=== PATIENT | female | born 1960 | race Caucasian/White ===

== ENCOUNTER 2016-06-19 00:50 | Inpatient (IN) | payer OTHER ==
[2016-06-19] VITALS (47 sets, daily range): BP systolic 95–157; BP diastolic 26–106
[~2016-06-19] VITALS: Ht 157.5 cm; Wt 63.2 kg
[~2016-06-19 00:50] MED LIST: ASPI-498 PO; BECL0.07 IN; CHOL20007 PO; DOXY-216 PO; METH4PAK PO; MONT5CHW17 PO; OMEG300C7 PO
[2016-06-19] MEDS ORDERED: ALBU1AER4 IN (01:01)
[2016-06-19] MEDS ORDERED: AMIODARONE HCL 150 MG in D5W 5% 100 ML IV ONE (01:15)
[2016-06-19] MEDS ORDERED: SODIUM CHLORIDE 0.9% 1,000 ML IV ONE ×2 (01:15→09:45)
[2016-06-19] MEDS ORDERED: NOREPINEPHRINE BITARTRATE 250 ML IV ONE (01:20)
[2016-06-19] MEDS ORDERED: ALBUTEROL SULF 2.5 MG/0.5ML(0.5%) NEB SOLN ONE ×3 (01:25→09:05)
[2016-06-19] MEDS ORDERED: IPRATROPIUM BROM 0.5 MG/2.5ML INH SOL ONE (01:25)
[2016-06-19 01:26] LABS: Platelet Count (auto) 181 10^3/uL (140-450)
[2016-06-19 01:30] LABS: Basophils # (auto) 0.1 uL; Basophils % (auto) 0.9 % (0.0-2.0); Eosinophils # (auto) 0.5 uL; Eosinophils % (auto) 4.9 % (0.0-7.0); Hematocrit 41.5 % (36.0-46.0); Hemoglobin 13.4 g/dL (12.2-16.2); Lymphocytes # (auto) 4.2 uL; Lymphocytes % (auto) 41.9 % (10.0-50.0); Mean Corpuscular Hemoglobin 30.5 pg (28.0-32.0); Mean Corpuscular Hgb Conc. 32.2 g/dL (32.0-36.0); Mean Corpuscular Volume 94.5 fL (80.0-100.0); Mean Platelet Volume 9.9 fL (7.4-10.4); Monocytes # (auto) 0.3 uL; Monocytes % (auto) 3.2 % (0.0-12.0); Neutrophils # (auto) 4.9 uL; Neutrophils % (auto) 49.1 % (37.0-80.0); Red Cell Distribution Width 12.1 % (11.6-16.0); SUSPECT VIEW TRANSMISSION
[2016-06-19 01:37] LABS: Albumin 2.6 g/dL (3.4-5.0); BUN/Creatinine Ratio 10.9; Calcium 11.1 mg/dL (8.5-10.1)
[2016-06-19] MEDS ORDERED: methylPREDNISolone SOD SUCC 125 MG/2 ML VL ONE (01:40)
[2016-06-19] MEDS ORDERED: methylPREDNISolone SOD SUCC 125 MG/2 ML VL IV ONE ×2 (01:45→09:45)
[2016-06-19 01:53] LABS: Bilirubin, Total 0.2 mg/dL (0.2-1.0); Total Protein 5.7 g/dL (6.4-8.2)
[2016-06-19] MEDS ORDERED: AMIODARONE HCL (50 MG/ ML) 3 ML VIAL IV ONE (02:01)
[2016-06-19] MEDS ORDERED: SODIUM BICARBONATE 8.4 % INJ 50ML VIAL IV ONE ×3 (02:15→05:15)
[2016-06-19] MEDS ORDERED: ALBUTEROL SULF 2.5 MG/0.5ML(0.5%) NEB SOLN NEB ONE ×2 (02:15→05:00)
[2016-06-19] MEDS: MAGNESIUM SULFATE 1GM/100ML 100 ML IV SCH ×2 (02:26→03:51)
[2016-06-19] MEDS ORDERED: MIDAZOLAM DRIP 100 mg/100mL NS 100 ML IV ONE (02:33)
[2016-06-19] MEDS: MIDAZOLAM DRIP 100 mg/100mL NS 100 ML IV SCH ×3 (02:49→18:52)
[2016-06-19] MEDS: NOREPINEPHRINE BITARTRATE 250 ML IV SCH ×2 (03:52→17:03)
[2016-06-19] MEDS ORDERED: ATROPINE SULF 0.5 MG/5ML SYR ONE (04:47)
[2016-06-19 04:55] LABS: Urine Bilirubin Negative (Negative); Urine Ca Oxalate Crystal FEW (None Seen); Urine Color Yellow (Yellow); Urine Ketone Negative (Negative); Urine Mucus FEW (None Seen); Urine Nitrite Negative (Negative); Urine RBC 6 /hpf (0 - 4); Urine Urobilinogen Normal (Negative)
[2016-06-19 04:57] LABS: Urine Blood 2+ /uL (Negative); Urine Glucose 3+ mg/dL (Normal)
[2016-06-19] MEDS ORDERED: IPRATROPIUM BROM 0.5 MG/2.5ML INH SOL NEB ONE (05:00)
[2016-06-19] MEDS ORDERED: DEXAMETHASONE SOD PHOS 10MG/1ML VIAL INJ IV ONE (05:00)
[2016-06-19] MEDS ORDERED: KETAMINE HCL 50 MG/ML 10ML VIAL IV ONE (05:15)
[2016-06-19] MEDS ORDERED: TERBUTALINE SULFATE 1 MG/ML 1ML VIAL SC ONE (05:15)
[2016-06-19] MEDS ORDERED: ATROPINE SULFATE 0.4 MG/1 ML VIAL IV ONE (05:15)
[2016-06-19] MEDS ORDERED: ROCURONIUM 10MG/ML 10ML VIAL IV ONE (06:15)
[2016-06-19] MEDS ORDERED: SODIUM BICARBONATE 50ML VIAL 150 ML in D5W 5% 1,000 ML IV ONE (06:15)
[2016-06-19] MEDS ORDERED: SODIUM CHLORIDE 0.9% 1,000 ML IV SCH (07:12)
[2016-06-19] MEDS ORDERED: DEXTROSE (50%) 50ML SYRG IV PRN (07:15)
[2016-06-19] MEDS ORDERED: NITROGLYCERIN 0.4 MG SL TAB SL PRN (07:15)
[2016-06-19] MEDS ORDERED: MORPHINE SULF INJ 2 MG/ML SYRINGE 1ML IV PRN ×2 (07:15)
[2016-06-19] MEDS ORDERED: OSELTAMIVIR 75 MG CAP PO ONE (07:15)
[2016-06-19] MEDS ORDERED: LORazepam 2MG/ML-1ML VIAL IV PRN (07:15)
[2016-06-19] MEDS ORDERED: PROMETHAZINE HCL 25 MG/ML 1ML IV PRN (07:15)
[2016-06-19] MEDS ORDERED: LEVOFLOXACIN 500MG 100 ML IV ONE (07:45)
[2016-06-19] MEDS: ACCU-CHEK COMFORT CURVE STRIP VI SCH ×4 (08:00→20:00)
[2016-06-19] MEDS ORDERED: PROPOFOL 100 ML IV ONE (08:35)
[2016-06-19] MEDS: PROPOFOL 100 ML IV SCH (08:51)
[2016-06-19 09:27] LABS: Partial Thromboplastin Time 31.3 sec (22.64-33.71)
[2016-06-19] MEDS ORDERED: LEVOFLOXACIN 500MG 100 ML IV SCH (10:00)
[2016-06-19] MEDS: ASPirin 81 mg TAB PO SCH (10:00)
[2016-06-19] MEDS ORDERED: ENOXAPARIN SOD 40 MG/0.4 ML SYRINGE SC SCH (10:00)
[2016-06-19] MEDS ORDERED: OSELTAMIVIR 75 MG CAP PO SCH (10:00)
[2016-06-19 10:01] LABS: INR 1.54 (0.9-1.15); Prothrombin Time 15.9 sec (9.37-12.3)
[2016-06-19] MEDS: ENOXAPARIN SOD 60 MG/0.6 ML SYRINGE SC SCH ×2 (10:28→22:28)
[2016-06-19] MEDS: PANTOPRAZOLE SODIUM 40 MG/10 ML VIAL IV SCH (10:28)
[2016-06-19] MEDS: InsuLIN REG 1unit/0.01ml Soln (100units/ml) SC SCH ×4 (10:35→20:00)
[2016-06-19 11:34] LABS: Lactic Acid 3.2 mmol/L (0.4-2.0)
[2016-06-19] MEDS: fentaNYL Drip 2500mCg/250mlNS 250 ML IV SCH (11:40)
[2016-06-19 12:00] LABS: REFLEX LACTIC ACID YES OR NO YES
[2016-06-19] MEDS: IPRATROPIUM BROM 0.5 MG/2.5ML INH SOL NEB SCH ×2 (12:20→19:29)
[2016-06-19] MEDS: ALBUTEROL SULF 2.5 MG/0.5ML(0.5%) NEB SOLN NEB SCH ×2 (12:20→19:29)
[2016-06-19] MEDS: methylPREDNISolone SOD SUCC 40 MG/ML VL IV SCH ×2 (12:46→17:41)
[2016-06-19 13:42] LABS: Lactic Acid 6.1 mmol/L (0.4-2.0)
[2016-06-19 14:16] LABS: REFLEX LACTIC ACID YES OR NO YES
[2016-06-19] MEDS: ALBUTEROL SULF 2.5 MG/0.5ML(0.5%) NEB SOLN NEB PRN ×2 (15:15→22:12)
[2016-06-19 19:02] LABS: Lactic Acid 7.8 mmol/L (0.4-2.0)
[2016-06-19] MEDS: SODIUM CHLORIDE 0.9% 1,000 ML IV SCH (19:23)
[2016-06-19 19:34] LABS: REFLEX LACTIC ACID YES OR NO YES
[2016-06-19] MEDS ORDERED: ATORVASTATIN 20 MG TAB PO SCH (22:00)
[2016-06-19] MEDS: OSELTAMIVIR 75 MG CAP PO SCH (22:00)
[2016-06-19] MEDS: ATORVASTATIN 20 MG TAB PO SCH (22:26)
[2016-06-20] VITALS (103 sets, daily range): BP systolic 97–186; BP diastolic 45–105
[2016-06-20] MEDS: ALBUTEROL SULF 2.5 MG/0.5ML(0.5%) NEB SOLN NEB SCH ×3 (00:21→18:40)
[2016-06-20] MEDS: IPRATROPIUM BROM 0.5 MG/2.5ML INH SOL NEB SCH ×4 (00:21→18:40)
[2016-06-20] MEDS: SODIUM CHLORIDE 0.9% 1,000 ML IV SCH (03:05)
[2016-06-20 03:57] LABS: Hematocrit 39.5 % (36.0-46.0); Hemoglobin 13.3 g/dL (12.2-16.2); Mean Corpuscular Hemoglobin 30.6 pg (28.0-32.0); Mean Corpuscular Hgb Conc. 33.6 g/dL (32.0-36.0); Mean Corpuscular Volume 91.1 fL (80.0-100.0); Mean Platelet Volume 9.2 fL (7.4-10.4); Platelet Count (auto) 222 10^3/uL (140-450); Red Cell Distribution Width 12.6 % (11.6-16.0); SUSPECT VIEW TRANSMISSION; White Blood Cell 23.9 10^3/uL (4.4-10.8)
[2016-06-20] MEDS: InsuLIN REG 1unit/0.01ml Soln (100units/ml) SC SCH ×3 (04:00→08:37)
[2016-06-20] MEDS: ACCU-CHEK COMFORT CURVE STRIP VI SCH ×3 (04:00→08:13)
[2016-06-20 04:08] LABS: Metamyelocytes % 0; Myelocytes % 0; Promyelocytes % 0; Reactive Lymphocytes 0
[2016-06-20] MEDS: ALBUTEROL SULF 2.5 MG/0.5ML(0.5%) NEB SOLN NEB PRN (04:27)
[2016-06-20 05:17] LABS: Albumin 2.5 g/dL (3.4-5.0); Calcium 7.4 mg/dL (8.5-10.1)
[2016-06-20 05:20] LABS: Potassium 2.8 mmol/L (3.5-5.1)
[2016-06-20 05:21] LABS: BUN/Creatinine Ratio 15.9
[2016-06-20 05:22] LABS: Bilirubin, Total 0.3 mg/dL (0.2-1.0); Total Protein 5.5 g/dL (6.4-8.2)
[2016-06-20 05:58] LABS: Anisocytosis Slight; Platelet Estimate Adequate
[2016-06-20] MEDS ORDERED: POTASSIUM CHL 20MEQ/100ML 300 ML IV ONE (06:15)
[2016-06-20] MEDS: POTASSIUM CHL 20MEQ/100ML 100 ML IV SCH ×3 (06:24→10:15)
[2016-06-20] MEDS: methylPREDNISolone SOD SUCC 40 MG/ML VL IV SCH ×4 (06:24→18:30)
[2016-06-20] MEDS: PROPOFOL 100 ML IV SCH (09:22)
[2016-06-20] MEDS: ASPirin 81 mg TAB PO SCH (10:02)
[2016-06-20] MEDS: ENOXAPARIN SOD 60 MG/0.6 ML SYRINGE SC SCH (10:02)
[2016-06-20] MEDS: PANTOPRAZOLE SODIUM 40 MG/10 ML VIAL IV SCH (10:02)
[2016-06-20] MEDS ORDERED: ALBUTEROL SULF 2.5 MG/0.5ML(0.5%) NEB SOLN NEB PRN (10:30)
[2016-06-20] MEDS ORDERED: cefTRIAXone 1GM/50ML D5W 50 ML IV ONE (10:30)
[2016-06-20] MEDS ORDERED: BUDESONIDE (INHALATION) 0.5 MG/2 ML NEB NEB ONE (10:45)
[2016-06-20] MEDS ORDERED: Novasource Renal 1 Liter GT SCH (10:45)
[2016-06-20] MEDS ORDERED: METOPROLOL TARTRATE 25 MG TAB PO ONE (10:45)
[2016-06-20] MEDS ORDERED: MONTELUKAST SODIUM 10 MG TAB GT ONE (10:45)
[2016-06-20] MEDS: fentaNYL Drip 2500mCg/250mlNS 250 ML IV SCH (10:58)
[2016-06-20 11:27] LABS: Magnesium 2.5 mg/dL (1.6-2.6); Phosphorus 5.1 mg/dL (2.5-4.90)
[2016-06-20] MEDS ORDERED: hydrALAZINE HCL 20 MG/ML VL IV PRN (11:30)
[2016-06-20] MEDS: OSELTAMIVIR 75 MG CAP PO SCH ×2 (11:37→22:00)
[2016-06-20] MEDS: D5W/SOD CHL 0.45% 1,000 ML IV SCH ×2 (11:45→19:30)
[2016-06-20] MEDS ORDERED: ALBUMIN 25% 100 ML IV ONE (11:45)
[2016-06-20] MEDS ORDERED: BUMETANIDE (0.25 MG/ML) INJ 10ML IV ONE (11:45)
[2016-06-20] MEDS ORDERED: HEPARIN DRIP/D5W 100UNITS/ML 250 ML IV SCH (12:23)
[2016-06-20] MEDS ORDERED: HEPARIN SODIUM (PORCINE) 5000 UNITS/ML 1ML VIAL IV ONE (12:30)
[2016-06-20] MEDS ORDERED: BUMETANIDE INJECTION 10 ML ONE (13:45)
[2016-06-20] MEDS ORDERED: methylPREDNISolone SOD SUCC 125 MG/2 ML VL IV SCH (14:00)
[2016-06-20] MEDS: BUDESONIDE (INHALATION) 0.5 MG/2 ML NEB NEB SCH (18:40)
[2016-06-20 19:18] LABS: Hematocrit 33.4 % (36.0-46.0); Hemoglobin 11.4 g/dL (12.2-16.2); Mean Corpuscular Hgb Conc. 34.1 g/dL (32.0-36.0); Mean Corpuscular Volume 91.1 fL (80.0-100.0); Mean Platelet Volume 9.5 fL (7.4-10.4); Platelet Count (auto) 159 10^3/uL (140-450); Red Cell Distribution Width 13.1 % (11.6-16.0); SUSPECT VIEW TRANSMISSION; White Blood Cell 23.4 10^3/uL (4.4-10.8)
[2016-06-20 19:23] LABS: Metamyelocytes % 0; Myelocytes % 0; Partial Thromboplastin Time 68.5 sec (22.64-33.71); Promyelocytes % 0; Reactive Lymphocytes 0
[2016-06-20 19:38] LABS: INR 1.29 (0.9-1.15); Prothrombin Time 13.3 sec (9.37-12.3)
[2016-06-20 20:31] LABS: Platelet Estimate Adequate; RBC Morphology Normal
[2016-06-20] MEDS: METOPROLOL TARTRATE 25 MG TAB PO SCH (22:00)
[2016-06-20] MEDS: ATORVASTATIN 20 MG TAB PO SCH (22:04)
[2016-06-21] VITALS (99 sets, daily range): BP systolic 79–197; BP diastolic 47–108
[2016-06-21] MEDS: ALBUTEROL SULF 2.5 MG/0.5ML(0.5%) NEB SOLN NEB SCH ×4 (00:16→19:10)
[2016-06-21] MEDS: IPRATROPIUM BROM 0.5 MG/2.5ML INH SOL NEB SCH ×4 (00:16→19:10)
[2016-06-21] MEDS: methylPREDNISolone SOD SUCC 40 MG/ML VL IV SCH ×4 (00:32→18:00)
[2016-06-21 02:32] LABS: Partial Thromboplastin Time 35.1 sec (22.64-33.71)
[2016-06-21 02:35] LABS: INR 1.2 (0.9-1.15); Prothrombin Time 12.4 sec (9.37-12.3)
[2016-06-21] MEDS: D5W/SOD CHL 0.45% 1,000 ML IV SCH ×3 (03:30→22:36)
[2016-06-21 04:08] LABS: Basophils # (auto) 0 uL; Eosinophils # (auto) 0 uL; Lymphocytes # (auto) 0.9 uL; Lymphocytes % (auto) 4.1 % (10.0-50.0); Mean Corpuscular Hgb Conc. 33.3 g/dL (32.0-36.0); Mean Corpuscular Volume 93.1 fL (80.0-100.0); Monocytes # (auto) 0.8 uL; Monocytes % (auto) 3.6 % (0.0-12.0); Neutrophils # (auto) 19.6 uL; Neutrophils % (auto) 92.3 % (37.0-80.0); Platelet Count (auto) 135 10^3/uL (140-450); Red Cell Distribution Width 13.4 % (11.6-16.0); SUSPECT VIEW TRANSMISSION; White Blood Cell 21.2 10^3/uL (4.4-10.8)
[2016-06-21 04:09] LABS: Albumin 2.7 g/dL (3.4-5.0); BUN/Creatinine Ratio 17.1; Bilirubin, Total 0.2 mg/dL (0.2-1.0); Calcium 7.1 mg/dL (8.5-10.1); Potassium 4.2 mmol/L (3.5-5.1); Total Protein 5.4 g/dL (6.4-8.2)
[2016-06-21] MEDS: BUDESONIDE (INHALATION) 0.5 MG/2 ML NEB NEB SCH ×2 (06:31→19:10)
[2016-06-21] MEDS: PROPOFOL 100 ML IV SCH (08:45)
[2016-06-21] MEDS: cefTRIAXone 1GM/50ML D5W 50 ML IV SCH (09:35)
[2016-06-21] MEDS: ASPirin 81 mg TAB PO SCH (10:00)
[2016-06-21 10:11] LABS: INR 1.17 (0.9-1.15)
[2016-06-21 10:14] LABS: Partial Thromboplastin Time 74.1 sec (22.64-33.71)
[2016-06-21] MEDS: PANTOPRAZOLE SODIUM 40 MG/10 ML VIAL IV SCH (10:35)
[2016-06-21] MEDS: METOPROLOL TARTRATE 25 MG TAB PO SCH ×2 (10:35→22:36)
[2016-06-21] MEDS: MONTELUKAST SODIUM 10 MG TAB GT SCH (10:36)
[2016-06-21] MEDS ORDERED: ALBUMIN 25% 100 ML IV ONE (10:45)
[2016-06-21] MEDS ORDERED: BUMETANIDE (0.25 MG/ML) INJ 10ML IV ONE (10:45)
[2016-06-21] MEDS ORDERED: HEPARIN DRIP/D5W 100UNITS/ML 250 ML IV SCH ×2 (10:45→16:30)
[2016-06-21] MEDS: fentaNYL Drip 2500mCg/250mlNS 250 ML IV SCH (10:58)
[2016-06-21 16:06] LABS: INR 1.15 (0.9-1.15); Prothrombin Time 11.8 sec (9.37-12.3)
[2016-06-21 16:19] LABS: Partial Thromboplastin Time 80.9 sec (22.64-33.71)
[2016-06-21] MEDS ORDERED: LABETALOL HCL 5 MG/ML 4ML SYRINGE IV ONE (16:46)
[2016-06-21] MEDS: LABETALOL HCL 5 MG/ML 4ML SYRINGE IV PRN (16:57)
[2016-06-21 19:29] LABS: Hematocrit 27.8 % (36.0-46.0); Hemoglobin 9.4 g/dL (12.2-16.2); Mean Corpuscular Hemoglobin 30.9 pg (28.0-32.0); Mean Corpuscular Hgb Conc. 33.7 g/dL (32.0-36.0); Mean Corpuscular Volume 91.5 fL (80.0-100.0); Mean Platelet Volume 10.1 fL (7.4-10.4); Platelet Count (auto) 217 10^3/uL (140-450); Red Cell Distribution Width 13.4 % (11.6-16.0); SUSPECT VIEW TRANSMISSION; White Blood Cell 28.5 10^3/uL (4.4-10.8)
[2016-06-21 19:36] LABS: Metamyelocytes % 0; Myelocytes % 0; Promyelocytes % 0; Reactive Lymphocytes 0
[2016-06-21 19:37] LABS: Partial Thromboplastin Time 47.8 sec (22.64-33.71); Prothrombin Time 11.9 sec (9.37-12.3)
[2016-06-21 19:51] LABS: INR 1.16 (0.9-1.15)
[2016-06-21 20:40] LABS: Anisocytosis Moderate; Platelet Estimate Adequate
[2016-06-21 20:41] LABS: Large Platelets FEW
[2016-06-21] MEDS: ATORVASTATIN 20 MG TAB PO SCH (22:35)
[2016-06-22] VITALS (36 sets, daily range): BP systolic 148–184; BP diastolic 83–108
[2016-06-22] MEDS: ALBUTEROL SULF 2.5 MG/0.5ML(0.5%) NEB SOLN NEB SCH ×3 (00:26→12:48)
[2016-06-22] MEDS: IPRATROPIUM BROM 0.5 MG/2.5ML INH SOL NEB SCH ×3 (00:26→12:48)
[2016-06-22] MEDS: LABETALOL HCL 5 MG/ML 4ML SYRINGE IV PRN (02:45)
[2016-06-22 03:55] LABS: Hemoglobin 9.2 g/dL (12.2-16.2); Mean Corpuscular Hemoglobin 31.3 pg (28.0-32.0); Mean Corpuscular Volume 92.1 fL (80.0-100.0); Mean Platelet Volume 10.4 fL (7.4-10.4); Platelet Count (auto) 174 10^3/uL (140-450); Red Cell Distribution Width 13.2 % (11.6-16.0); SUSPECT VIEW TRANSMISSION; White Blood Cell 21.4 10^3/uL (4.4-10.8)
[2016-06-22 04:14] LABS: Calcium 6.9 mg/dL (8.5-10.1); Potassium 5.1 mmol/L (3.5-5.1)
[2016-06-22 04:24] LABS: BUN/Creatinine Ratio 20.1; Bilirubin, Total 0.7 mg/dL (0.2-1.0); Total Protein 5.6 g/dL (6.4-8.2)
[2016-06-22 05:42] LABS: Metamyelocytes % 0; Myelocytes % 0; Promyelocytes % 0; Reactive Lymphocytes 0
[2016-06-22] MEDS: BUDESONIDE (INHALATION) 0.5 MG/2 ML NEB NEB SCH (06:00)
[2016-06-22] MEDS: methylPREDNISolone SOD SUCC 40 MG/ML VL IV SCH ×2 (06:07)
[2016-06-22] MEDS: D5W/SOD CHL 0.45% 1,000 ML IV SCH ×2 (06:23→11:30)
[2016-06-22 06:30] LABS: Platelet Estimate Adequate
[2016-06-22] MEDS: PROPOFOL 100 ML IV SCH (08:45)
[2016-06-22] MEDS: cefTRIAXone 1GM/50ML D5W 50 ML IV SCH (09:00)
[2016-06-22] MEDS: PANTOPRAZOLE SODIUM 40 MG/10 ML VIAL IV SCH (09:58)
[2016-06-22] MEDS: MONTELUKAST SODIUM 10 MG TAB GT SCH (09:58)
[2016-06-22] MEDS: ASPirin 81 mg TAB PO SCH (09:59)
[2016-06-22] MEDS: METOPROLOL TARTRATE 25 MG TAB PO SCH (09:59)
[2016-06-22] MEDS: fentaNYL Drip 2500mCg/250mlNS 250 ML IV SCH (10:58)
[2016-06-22] MEDS ORDERED: LORazepam 2MG/ML-1ML VIAL IV ONE (12:45)
[2016-06-22] MEDS ORDERED: LORazepam 2MG/ML-1ML VIAL IV PRN (12:45)
[2016-06-22] MEDS ORDERED: MORPHINE SULF INJ 2 MG/ML SYRINGE 1ML IV ONE (12:45)
[2016-06-22] MEDS ORDERED: methylPREDNISolone SOD SUCC 40 MG/ML VL IV SCH (18:00)
[2016-06-22] MEDS: MORPHINE SULF INJ 2 MG/ML SYRINGE 1ML IV PRN (18:29)
[2016-06-23 05:32] VITALS: BP 153/85
[2016-06-23 05:41] LABS: Hematocrit 27.6 % (36.0-46.0); Hemoglobin 9.3 g/dL (12.2-16.2); Mean Corpuscular Hemoglobin 30.8 pg (28.0-32.0); Mean Corpuscular Hgb Conc. 33.7 g/dL (32.0-36.0); Mean Corpuscular Volume 91.4 fL (80.0-100.0); Mean Platelet Volume 10.5 fL (7.4-10.4); Platelet Count (auto) 207 10^3/uL (140-450); Red Cell Distribution Width 13.8 % (11.6-16.0); SUSPECT VIEW TRANSMISSION
[2016-06-23 05:44] LABS: Metamyelocytes % 0; Myelocytes % 0; Promyelocytes % 0; Reactive Lymphocytes 0; White Blood Cell 31.3 10^3/uL (4.4-10.8)
[2016-06-23 06:14] LABS: BUN/Creatinine Ratio 22.8; Calcium 7.5 mg/dL (8.5-10.1); Potassium 5.1 mmol/L (3.5-5.1)
[2016-06-23 06:55] LABS: Platelet Estimate Adequate; RBC Morphology Normal
[2016-06-23 09:00] VITALS: BP 160/86
[2016-06-23 12:42] VITALS: BP 152/89
[2016-06-23] MEDS: MORPHINE SULF INJ 2 MG/ML SYRINGE 1ML IV PRN ×3 (14:16→20:53)
[2016-06-23 17:00] VITALS: BP 141/78
[2016-06-23 22:00] VITALS: BP 132/72
== END 2016-06-24 01:03 | disposition expired | DRG 208 ==
LOC: ER 00:52 → TELE 00:53 → ICU WEST 15:24 → WEST WING 06-22 17:16
PROVIDERS: ADMIT Internal Medicine; ATTEND Internal Medicine
PROC: 5A1945Z Respiratory Ventilation, 24-96 Consecutive Hours (ICD-10-PCS; principal; 2016-06-22)
PROC: 0BH17EZ Insertion of Endotracheal Airway into Trachea, Via Natural or Artificial Opening (ICD-10-PCS; 2016-06-22)
DX: J96.21 Acute and chronic respiratory failure with hypoxia (principal); N17.0 Acute kidney failure with tubular necrosis; I21.4 Non-ST elevation (NSTEMI) myocardial infarction; E43 Unspecified severe protein-calorie malnutrition; G93.6 Cerebral edema; J18.9 Pneumonia, unspecified organism; K72.00 Acute and subacute hepatic failure without coma; N39.0 Urinary tract infection, site not specified; J44.1 Chronic obstructive pulmonary disease with (acute) exacerbation; E87.2 Acidosis; G93.1 Anoxic brain damage, not elsewhere classified; J44.0 Chronic obstructive pulmonary disease with (acute) lower respiratory infection; E87.0 Hyperosmolality and hypernatremia; J96.02 Acute respiratory failure with hypercapnia; I46.9 Cardiac arrest, cause unspecified; I48.91 Unspecified atrial fibrillation; E87.6 Hypokalemia; F17.210 Nicotine dependence, cigarettes, uncomplicated; G40.909 Epilepsy, unspecified, not intractable, without status epilepticus; F15.90 Other stimulant use, unspecified, uncomplicated; Z51.5 Encounter for palliative care; T38.0X5A Adverse effect of glucocorticoids and synthetic analogues, initial encounter; R73.9 Hyperglycemia, unspecified; Z86.73 Personal history of transient ischemic attack (TIA), and cerebral infarction without residual deficits; Z68.25 Body mass index [BMI] 25.0-25.9, adult; Z82.49 Family history of ischemic heart disease and other diseases of the circulatory system; Z82.0 Family history of epilepsy and other diseases of the nervous system; Z79.82 Long term (current) use of aspirin; Z66 Do not resuscitate
CPT/HCPCS: 36415; 36556; 36600; 51702; 70450; 71010; 80048; 80053; 80061; 81001; 82550; 82570; 82607; 82805; 82962; 83036; 83605; 83735; 84100; 84132; 84300; 84443; 84484; 85007; 85025; 85027; 85379; 85610; 85652; 85730; 87040; 87070; 87081; 87205; 92950; 93005; 93306; 93886; 93970; 94002; 94003; 94640; 94644; 94645; 95819; 96361; 96365; 96366; 96367; 96372; 96375; 99291; 99292; C9113; G0434; J0461; J0696; J1100; J1815; J1956; J2704; J3010; J3480; J3490; J7060